=== PATIENT | male | born 1945 ===

== ENCOUNTER 2023-01-29 09:00 | Inpatient (IN) | payer OTHER ==
[~2023-01-29] VITALS: Ht 160 cm; Wt 72.6 kg
[2023-01-30] MEDS ORDERED: ACTOS PO (09:21)
[2023-01-30] MEDS ORDERED: LIPIT PO (09:22)
[2023-01-30] MEDS ORDERED: SINGULAIR10 MG PO (09:22)
[2023-02-04] MEDS ORDERED: AMLODIPINE BESY10 MG (13:05)
[2023-02-04] MEDS ORDERED: ATORVASTATIN CA40 MG (13:05)
[2023-02-04] MEDS ORDERED: CLONAZEPAM1 MG (13:05)
[2023-02-04] MEDS ORDERED: RESTORIL30 MG (13:05)
[2023-02-04] MEDS ORDERED: TRELEGY ELLIPT1 EAC1 (13:05)
[2023-02-04] MEDS ORDERED: CELECOXIB200 MG (13:06)
[2023-02-04] MEDS ORDERED: OMEPRAZOLE20 MG (13:06)
[2023-02-04] MEDS ORDERED: TRADJENTA5 MG (13:06)
[2023-02-04] MEDS ORDERED: VALSARTAN160 MG (13:06)
[2023-02-04] MEDS ORDERED: REFRESH RELIEVA10 ML (13:06)
[2023-02-04] MEDS ORDERED: GLIPIZIDE5 MG (13:06)
[2023-02-04] MEDS ORDERED: PIOGLITAZONE HC30 MG (13:07)
[2023-02-04] MEDS ORDERED: ENALAPRIL MALEA10 MG (13:07)
[2023-02-04] MEDS ORDERED: GABAPENTIN600 MG (13:07)
[2023-02-04] MEDS ORDERED: OMEGA-3 ACID ETH1 GM (13:07)
[2023-02-04] MEDS ORDERED: CILOSTAZOL100 MG (13:07)
[2023-02-04] MEDS ORDERED: ACETAMINOPHEN-1 EAC2 PO (13:48)
[2023-02-04] MEDS ORDERED: MEDROLPACK PO (13:48)
[2023-02-04] MEDS ORDERED: COLACE100 MG PO (13:49)
[2023-02-04] MEDS ORDERED: AMOX-CLAV 875-1 EACH PO (13:49)
[2023-02-04] MEDS ORDERED: NEURONTIN800 MG PO (13:49)
== END 2023-02-06 13:27 | DRG 455 ==
LOC: SURH 02-04 08:15 → PED 02-04 11:57 → O/R 02-04 11:57 → SURH 02-04 13:30 → PED 02-05 02:32
PROVIDERS: ADMIT Orthopaedic Surgery Orthopaedic Surgery of the Spine; ATTEND Orthopaedic Surgery Orthopaedic Surgery of the Spine
PROC: 0SG3071 Fusion of Lumbosacral Joint with Autologous Tissue Substitute, Posterior Approach, Posterior Column, Open Approach (ICD-10-PCS; 2023-02-04)
PROC: 0ST40ZZ Resection of Lumbosacral Disc, Open Approach (ICD-10-PCS; 2023-02-04)
PROC: 0QB30ZZ Excision of Left Pelvic Bone, Open Approach (ICD-10-PCS; 2023-02-04)
PROC: 07DR0ZZ Extraction of Iliac Bone Marrow, Open Approach (ICD-10-PCS; 2023-02-04)
PROC: XRGD0R7 Fusion of Lumbosacral Joint using Custom-Made Anatomically Designed Interbody Fusion Device, Open Approach, New Technology Group 7 (ICD-10-PCS; principal; 2023-02-04 13:30)
DX: M48.07 Spinal stenosis, lumbosacral region (principal); M43.17 Spondylolisthesis, lumbosacral region; I10 Essential (primary) hypertension; R26.89 Other abnormalities of gait and mobility